=== PATIENT | male | born 1980 | race Caucasian/White ===

== ENCOUNTER 2018-03-29 17:50 | Emergency (ER) | payer MEDICAID ==
[~2018-03-29] VITALS: Ht 185.4 cm; Wt 96.5 kg
[2018-03-29 17:54] VITALS: BP 126/83
== END 2018-03-29 18:58 | disposition home or self-care (01) ==
LOC: ED 18:50
DX: I10 Essential (primary) hypertension (principal)
CPT/HCPCS: 99283